=== PATIENT | male | born 1945 | race Caucasian/White ===

== ENCOUNTER 2016-11-25 15:28 | Emergency (ER) | payer OTHER ==
[~2016-11-25] VITALS: Wt 74.5 kg
[~2016-11-25 15:28] MED LIST: ASPI81TA3 PO; CHOL2000 PO; CLON-379 PO; CLON0.5T4 PO; LEVOXINE ORAL; NIT4 SL; RANI150T5 PO
[2016-11-25] MEDS ORDERED: AMO500 PO (16:23)
[2016-11-25] MEDS ORDERED: NPH10OT RIGHT EAR (16:23)
--- NOTE | 2016-11-25 16:27 | ERD ---
ER Documentation Chief Complaint Date/Time DATE: 11/25/16 TIME: 16:25 Chief Complaint right ear pain x2days s/p swimming HPI Patient is a 71 male who is complaining of right ear pain for 2 days that began after he went swimming. He denies fever. He denies any changes in his hearing. He denies any bleeding or drainage from the ear. He states he has had this before had good relief of his symptoms with antibiotic eardrops. Denies any nausea or vomiting. Denies any dizziness. Denies headache. ROS All systems reviewed and are negative except as per history of present illness. Medications Home Meds Active Scripts Neomycin/Polymyxin/Hydrocort* (Cortisporin* Otic) 10 Ml Susp, 4 DROP RIGHT EAR QID for 7 Days, EA Prov:SANTINO NADERSON PA-C 11/25/16 Amoxicillin* (Amoxicillin*) 500 Mg Cap, 500 MG PO BID for 7 Days, CAP Prov:SANTINO ANDERSON PA-C 11/25/16 Aspirin (Aspirin) 81 Mg Chew, 81 MG PO DAILY for 30 Days, TAB.CHEW Prov:LYNNETTE HERMAN 06/24/15 Nitroglycerin* (Nitrostat*) 25 Tab Subl, 0.4 MG SL Q5M Y for ANGINA, #30 3 dose max Prov:LYNNETTE HERMAN 06/24/15 Clonidine Hcl* (Clonidine Hcl*) 0.1 Mg Tab, 0.1 MG PO Q6H, #30 TAB for systolic blood pressure > 160 Prov:LYNNETTE HERMAN 06/24/15 Reported Medications Cholecalciferol* (Vitamin D3*) 2,000 Unit Cap, 2000 UNIT PO DAILY, CAP 06/22/15 Ranitidine Hcl* (Ranitidine Hcl*) 150 Mg Tablet, 150 MG PO HS, #30 TAB 06/22/15 Clonazepam* (Clonazepam*) 0.5 Mg Tablet, 0.5 MG PO BID Y for ANXIETY, TAB 06/22/15 [levoxine] No Conflict Check, 50 MCG ORAL DAILY 06/22/15 Allergies Allergies: Coded Allergies: No Known Allergy (Unverified , 06/22/15) PMhx/Soc History of Surgery: No Anesthesia Reaction: No Hx Neurological Disorder: No Hx Respiratory Disorders: No Hx Cardiac Disorders: No Hx Psychiatric Problems: Yes (ANXIETY) Hx Miscellaneous Medical Probl: Yes (hypothyroidism, LBP) Hx Alcohol Use: No Hx Substance Use: No Hx Tobacco Use: Yes Smoking Status: Current every day smoker FmHx Family History: No diabetes Physical Exam Vitals Vital Signs Date Time Temp Pulse Resp B/P Pulse Ox O2 Delivery O2 Flow Rate FiO2 11/25/16 15:47 98.0 79 20 138/89 96 Physical Exam General: well developed, well nourished, alert, nontoxic, no distress Head: normocephalic, atraumatic Eyes: PERRL, normal conjunctiva Neck: Supple, nontender, no lymphadenopathy, no midline tenderness Ears: no tenderness over mastoids bilaterally, right tympanic membrane is erythematous with scant exudate in the canal, left ear is within normal limits Oropharynx: no tonsilar erythema or edema, uvula midline, no exudates, no kissing tonsils, no drooling Respiratory: Clear to auscaultation bilaterally, speaks in full sentences, no use of accesory muscles or labored breathing, no rales, ronchi, or wheezing Cardiovascular: RRR, No murmurs Procedures/MDM Patient presents with ear infection after swimming 2 days ago. His vital signs are normal he is otherwise well-appearing in no distress he is not diabetic.. He will be discharged with Cortisporin eardrops as well as amoxicillin. Recommended this patient follow up with her primary care doctor within 48 hours or return to the emergency room for any worsening of symptoms. However this time I do believe there is suitable for outpatient management. I answered all their questions and they agreed with the plan and were discharged home. Departure Diagnosis: Primary Impression: Otitis media Additional Impression: Otitis externa Condition: Stable Patient Instructions: Otitis Media, Abx Tx (Adult) Additional Instructions: Call your primary care doctor TOMORROW for an appointment during the next 1-2 days.See the doctor sooner or return here if your condition worsens before your appointment time. SANTINO ANDERSON PA-C Nov 25, 2016 16:27
== END 2016-11-25 16:39 | disposition home or self-care (01) ==
LOC: FTE 15:28
DX: H66.91 Otitis media, unspecified, right ear (principal); H60.91 Unspecified otitis externa, right ear; F17.210 Nicotine dependence, cigarettes, uncomplicated
CPT/HCPCS: 99283

== ENCOUNTER 2017-09-06 17:39 | Emergency (ER) | END 2017-09-06 18:35 | disposition home or self-care (01) ==